=== PATIENT | male | born 1970 | race Caucasian/White ===

== ENCOUNTER 2017-11-30 20:18 | Inpatient (IN) | payer SELFPAY ==
[~2017-11-30] VITALS: Ht 195.6 cm; Wt 123.5 kg
[2017-11-30 21:52] LABS: BASOPHIL (%) 0.4 % (0-1); BASOPHIL COUNT 0.1 K/uL (0-0.1); EOSINOPHIL (%) 0.8 % (0-5); EOSINOPHIL COUNT 0.1 K/uL (0-0.3); HEMATOCRIT 41.4 % (38.0-50.0); HEMOGLOBIN 14.3 G/DL (12.5-16.6); IMMATURE GRANULOCYTE (%) 0.4 % (0.0-0.7); LYMPHOCYTE (%) 9.8 % (15-42); LYMPHOCYTE COUNT 1.7 K/uL (1.0-2.8); MCH 30.8 PG (29.0-34.0); MCHC 34.5 G/DL (30.0-36.0); MCV 89.2 FL (86-99); MONOCYTE (%) 6.1 % (3-12); MONOCYTE COUNT 1.1 K/uL (0-0.8); NEUTROPHIL (%) 82.5 % (45-76); NEUTROPHIL COUNT 14.1 K/uL (1.8-6.4); PLATELET COUNT 211 K/uL (156-360); RBC DIS.WIDTH-CV 12.6 % (11.8-14.6); RED BLOOD COUNT 4.64 M/uL (4.00-5.50); WHITE BLOOD COUNT 17.1 K/uL (4.1-10.2)
[2017-11-30 22:06] LABS: PTT 26.4 SEC (25-37)
[2017-11-30 22:12] LABS: CHLORIDE 102 mEq/L (99-109); SODIUM 136 mEq/L (136-147)
[2017-11-30 22:13] LABS: GLUCOSE 104 mg/dL (70-99)
[2017-11-30 22:17] LABS: CREATININE 0.9 mg/dL (0.6-1.3); GFR ESTIMATE (CALCULATED) > 59 mL/min/ (58.99-99999)
[2017-11-30 22:18] LABS: UREA NITROGEN (BUN) 13 mg/dL (9-23)
[2017-12-01 03:12] VITALS: BP 174/105
[2017-12-01 08:16] VITALS: BP 185/108
[2017-12-01 11:26] VITALS: BP 169/97
[2017-12-01] MEDS ORDERED: MEN'S MULTI-VI1 EACH PO (14:53)
[2017-12-01] MEDS ORDERED: ADVIL,NUPRIN,M200 MG PO (14:53)
[2017-12-01] MEDS ORDERED: LO-DOSE ASPIRIN81 M1 PO (14:53)
[2017-12-01 16:08] VITALS: BP 169/92
[2017-12-01 19:16] VITALS: BP 159/87
[2017-12-01 23:20] VITALS: BP 173/98
[2017-12-02 04:28] VITALS: BP 159/90
[2017-12-02 08:07] VITALS: BP 174/97
[2017-12-02] MEDS ORDERED: OXYCODONE HCL5 MG PO (09:15)
[2017-12-02 16:13] VITALS: BP 164/97
== END 2017-12-02 17:25 | disposition home or self-care (01) | DRG 563 ==
LOC: EME 20:18 → 3EAST 12-01 01:47 → EDOF 12-01 01:47 → ENRESERV 12-01 01:48 → 3EAST 12-01 02:58
PROVIDERS: Emergency Medicine
DX: S82.841A Displaced bimalleolar fracture of right lower leg, initial encounter for closed fracture (principal); W19.XXXA Unspecified fall, initial encounter; Y93.89 Activity, other specified; Y92.9 Unspecified place or not applicable; I10 Essential (primary) hypertension
CPT/HCPCS: 73590; 73610; 73630; 80048; 85025; 85610; 85730; 99281; 99285; J2250; J2405; J3010